=== PATIENT | male | born 1935 | race Caucasian/White ===

== ENCOUNTER 2019-12-30 13:48 | Outpatient (CLI) | payer MEDICARE, SELFPAY ==
--- NOTE | ~2019-12-30 | US_ITS ---
EXAMINATION: US renal BI DATE: 12/30/2019 14:27 INDICATION: Bacteriuria TECHNIQUE: Multiple ultrasound grayscale images of the kidneys were obtained. COMPARISON: None. FINDINGS: The right kidney measures 9.2 x 5.1 x 5.2 cm. The left kidney measures 9.8 x 5.0 x 5.9 cm. The kidney s demonstrate normal echogenicity. 1.3 cm anechoic cyst at the interpolar region of the left kidney. There is no hydronephrosis in either kidney. No stones identified. The partially decompressed bladde r is normal. IMPRESSION: 1. Small right renal cyst. Otherwise normal kidneys without hydronephrosis. Reviewed, dictated and finalized at location A.
== END 2019-12-30 13:49 | disposition home or self-care (01) ==
PROVIDERS: PCP Internal Medicine; Visit Provider Internal Medicine Infectious Disease
DX: R82.71 Bacteriuria (principal); N28.1 Cyst of kidney, acquired
CPT/HCPCS: 76775